=== PATIENT | male | born 1980 | race Caucasian/White ===

== ENCOUNTER → 2018-07-25 16:53 | Outpatient (CLI) | payer OTHER | END | disposition home or self-care (01) | LOC: D.CT 16:53 | DX: J32.9 Chronic sinusitis, unspecified (principal) ==

== ENCOUNTER 2020-12-24 11:18 | Emergency (ER) | payer OTHER ==
[~2020-12-24] VITALS: Ht 175.3 cm; Wt 88.6 kg
[2020-12-24 11:27] VITALS: Ht 175.3 cm; Wt 88.6 kg
[2020-12-24 12:08] LABS: BASOPHILS 0.6 % (0-2); EOSINOPHILS 1.7 % (0-7); HEMATOCRIT 43.6 % (42.0-54.0); HEMOGLOBIN 15.7 g/dL (13.5-17.5); IMMATURE GRANULOCYTES 0.2 % (0-5); LYMPHOCYTE ABS# 1.16 10x3/uL (1.32-3.57); LYMPHOCYTES 22.4 % (15-50); MCH 31.3 pg (26.0-34.0); MEAN PLATELET VOLUME 10.1 fL (7.4-10.4); MONOCYTES 8.7 % (2-11); NEUTROPHIL ABS# 3.44 10x3/uL (1.78-5.38); NEUTROPHILS 66.4 % (40-80); PLATELET COUNT 180 10x3/uL (130-400); RBC 5.01 10x6/uL (4.20-6.10); RDW 12.1 % (11.5-14.5); WBC 5.2 10x3/uL (4.8-10.8)
[2020-12-24 12:19] LABS: BILIRUBIN NEGATIVE (NEGATIVE); KETONE NEGATIVE (NEGATIVE); NITRITE NEGATIVE (NEGATIVE); UROBILINOGEN NORMAL mg/dL (< 2)
[2020-12-24 12:22] LABS: CALC OSMOLALITY 284 mosm/kg (275-300); CALCIUM 8.7 mg/dL (8.5-10.1); CARBON DIOXIDE 26.5 mmol/L (21.0-32.0); CHLORIDE - SERUM 104 mmol/L (98-107); CREATININE - SERUM 1.3 mg/dL (0.6-1.3); GLUCOSE 111 mg/dL (74-106); POTASSIUM - SERUM 4.3 mmol/L (3.5-5.1); SODIUM 141 mmol/L (136-145); UREA NITROGEN 20 mg/dL (7-18); eGFR NON AFRICAN AMERICAN 65 mL/min (90-120)
[2020-12-24 12:27] LABS: UDS - AMPHET NEGATIVE QUAL (NEGATIVE); UDS - BARB NEGATIVE QUAL (NEGATIVE); UDS - BENZO NEGATIVE QUAL (NEGATIVE); UDS - COCAINE NEGATIVE QUAL (NEGATIVE); UDS - OPIATE NEGATIVE QUAL (NEGATIVE); UDS - PCP NEGATIVE QUAL (NEGATIVE); UDS - THC NEGATIVE QUAL (NEGATIVE)
[2020-12-24 12:36] LABS: INR 1.15 (0.85-1.17); PROTIME 13.6 SECONDS (11.6-15.0)
[2020-12-24 12:37] LABS: ALBUMIN 4.2 g/dL (3.4-5.0); ALKALINE PHOSPHATASE 87 U/L (30-120); ALT (SGPT) 31 U/L (10-68); BILIRUBIN - TOTAL 0.59 mg/dL (0.2-1.3); CKMB 0.3 U/L (0.0-3.6); CREATINE KINASE 106 UL (21-232); D-DIMER-QUANTITATIVE < 0.27 ug/mLFEU (0.20-0.54); MAGNESIUM - SERUM 2.3 mg/dL (1.8-2.4); PROTEIN - SERUM 7.1 g/dL (6.4-8.2)
[2020-12-24 12:39] LABS: TROPONIN-I < 0.017 ng/mL (0.000-0.060)
[2020-12-24 13:52] VITALS: BP 123/68
== END 2020-12-24 13:53 | disposition home or self-care (01) ==
LOC: D.ER 11:18
PROVIDERS: Family Medicine
DX: R07.9 Chest pain, unspecified (principal); R09.89 Other specified symptoms and signs involving the circulatory and respiratory systems

== ENCOUNTER → 2021-01-30 13:29 | Outpatient (CLI) | payer OTHER ==
[2020-12-24 11:27] VITALS: BMI 28.8
--- NOTE | 2021-01-31 14:10 | ST ---
PATIENT:VINAY LEE MEDICAL RECORD: [id number] SEX: M LOCATION:[facility] ORDER #: ADMISSION DATE: 01/30/21 AGE OF PATIENT: 40 REFERRING PHYSICIAN: INTERPRETING PHYSICIAN: RODRIGUEZ GIBSON MD DATE OF SERVICE: 01/30/2021 TREADMILL STRESS TEST Baseline ECG is normal. Exercised for 9 minutes per Geovanny protocol. Maximum heart rate 157 beats per minute greater than 85% max predicted. No ECG changes for ischemia. No symptoms of ischemia. Normal blood pressure on exercise. No arrhythmias noted. Good exercise tolerance for age. TRANSINT:[id number] Voice Confirmation ID: [id number] DOCUMENT ID: [id number] RODRIGUEZ GIBSON MD at 1410 CC: [id number] DICTATION DATE: 01/30/21 1645 RACING BOARD MARKER: 01/31/21 0837 DEP CLI 01/30/21 [address] [id number] [place] [address]
--- NOTE | 2021-02-01 13:38 | EC ---
PATIENT:VINAY LEE DATE OF SERVICE: 01/30/21 SEX: M MEDICAL RECORD: [id number] DATE OF : 80 LOCATION:[facility] AGE OF PATIENT: 40 ADMISSION DATE: 01/30/21 REFERRING PHYSICIAN: INTERPRETING PHYSICIAN: RODRIGUEZ GIBSON MD ECHOCARDIOGRAM REPORT ECHO CHARGES 4 ECHO COMPLETE Date: 01/30/21 CLINICAL DIAGNOSIS: HEART MURMUR/CHEST PAIN ECHOCARDIOGRAPHIC MEASUREMENTS (adult normal given) AC root (d.<3.7cm) 3.3 cm LV Septum d (<1.2 cm> 1.1 cm Valve Excursion 1.7 cm LV Septum (systole) 1.2 cm Left Atria (s.<4.0cm> 3.6 cm LVPW d(<1.2cm) 1.3 cm RV (d.<2.3cm) 3.9 cm LVPW (sytole) 1.4 cm LV diastole(<5.6CM) 5.2 cm MV E-F(>70mm/sec) cm LV systole 3.8 cm LVOT Diameter 2.3 cm MV exc.(>10mm) 1.8 cm Est.ejection fraction (50-75%) % DOPPLER: LVIT cm/sec A 68.0 cm/sec E 82.0 cm/sec LA cm/sec RVSP 23 mmHg LVOT 98 cm/sec AOP1/2T m/s Asc. Ao 107 cm/sec RVOT 74 cm/sec RA cm/sec PA 104 cm/sec AV Gradient Peak 4.59 mmHg AV Mean 2.26 mmHg AV Area 3.9 cm MV Gradient Peak 2.77 mmHg MV Mean 1.17 mmHg MV Area cm COMMENTS: Fire Control Technician G: 2 SAMIR SALAS Chili Maker: 3 Dr. Webster TAPE# PACS Pericardial Effusion N DATE OF SERVICE: Adequate 2D, color-flow imaging, spectral Doppler, and M-Mode. FINDINGS: No LVH. LV internal dimensions are normal. Wall motion is normal. EF is greater than or equal to 55%. Aortic valve is tricuspid. No evidence of stenosis by Doppler interrogation. Left atrium is normal at 3.6 cm. Mitral valve shows no prolapse. Trace MR. Right side is grossly normal. Trace TR. TRANSINT:[id number] Voice Confirmation ID: [id number] DOCUMENT ID: [id number] ECHOCARDIOGRAM REPORT [id number] VINAY LEE,RODRIGUEZ Howard MD at 1338 CC: [id number] DICTATION DATE: 01/31/21 155 COATER: 01/31/21 2100 DEP CLI 01/30/21 [place] [id number] [place] [id number]
== END | disposition home or self-care (01) ==
LOC: D.HCCECHO 13:29
PROVIDERS: ATTEND Internal Medicine Interventional Cardiology
DX: R07.9 Chest pain, unspecified (principal); R07.89 Other chest pain